=== PATIENT | male | born 1995 | race American Indian/Alaskan Native ===

== ENCOUNTER 2017-11-27 07:44 | Emergency (ER) | payer OTHER ==
[2017-11-27 07:50] VITALS: BP 112/74
--- NOTE | 2017-11-27 09:20 | Emergency Department Report ---
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 Once she started he noticed that he is having intense pain in the left ear is continued to have a ringing sensation. Patient denies any other complaints at this time. - Related Data Allergies Allergy/AdvReac Type Severity Reaction Status Date / Time No Known Allergies Allergy Unverified 11/27/17 07:46 ED Dental HPI - General Chief complaint: Earache Stated complaint: PAIN EAR DRUM Time Seen by Provider: 11/27/17 09:10 Source: patient Mode of arrival: Ambulatory Limitations: No Limitations - Related Data Allergies Allergy/AdvReac Type Severity Reaction Status Date / Time No Known Allergies Allergy Unverified 11/27/17 07:46 ED Review of Systems ROS: Stated complaint: PAIN EAR DRUM Other details as noted in HPI Comment: All other systems reviewed and negative ED Past Medical Hx - Past Medical History Previous Medical History?: No - Surgical History Additional Surgical History: LEFT HAND - Social History Smoking Status: Current Every Day Smoker Substance Use Type: None ED Physical Exam - General Limitations: No Limitations General appearance: alert, in no apparent distress - Head Head exam: Present: atraumatic, normocephalic - Eye Eye exam: Present: normal appearance - ENT ENT exam: Present: mucous membranes moist - Neck Neck exam: Present: normal inspection - Respiratory Respiratory exam: Present: normal lung sounds bilaterally. Absent: respiratory distress - Cardiovascular Cardiovascular Exam: Present: regular rate, normal rhythm. Absent: systolic murmur, diastolic murmur, rubs, gallop - GI/Abdominal GI/Abdominal exam: Present: soft, normal bowel sounds - Rectal Rectal exam: Present: deferred - Extremities Exam Extremities exam: Present: normal inspection - Back Exam Back exam: Present: normal inspection - Neurological Exam Neurological exam: Present: alert, oriented X3 - Psychiatric Psychiatric exam: Present: normal affect, normal mood - Skin Skin exam: Present: warm, dry, intact, normal color. Absent: rash ED Course Vital Signs 11/27/17 07:47 Temperature 97.7 F Pulse Rate 68 Respiratory 18 Rate Blood Pressure 112/74 O2 Sat by Pulse 99 Oximetry ED Medical Decision Making - Medical Decision Making Patient instructed that unfortunately there is nothing acutely that could be done for the ringing sensation. He would just have to wait for this to subside. Critical care attestation.: If time is entered above; I have spent that time in minutes in the direct care of this critically ill patient, excluding procedure time. ED Disposition Clinical Impression: Tinnitus Qualifiers: Laterality: left Qualified Code(s): H93.12 - Tinnitus, left ear Disposition: Z-07 MED SCREENING EXAM-LEFT Is pt being admited?: No Does the pt Need Aspirin: No Condition: Stable Referrals: PRIMARY CARE, [Primary Care Provider] - 3-5 Days
== END 2017-11-27 09:15 | disposition left against medical advice (07) ==
LOC: ED 07:44
DX: H93.12 Tinnitus, left ear (principal); F17.200 Nicotine dependence, unspecified, uncomplicated
CPT/HCPCS: 99282

== ENCOUNTER 2020-01-20 15:40 | Emergency (ER) | payer OTHER ==
[2020-01-20 16:01] VITALS: BP 122/85
--- NOTE | 2020-01-20 16:52 | XRay Report ---
RIGHT CLAVICLE 2 VIEWS INDICATION / CLINICAL INFORMATION: Right shoulder pain and limited range of motion. COMPARISON: None available. FINDINGS: BONES / JOINT(S): No acute fracture or subluxation. No significant arthritis. SOFT TISSUES: No significant abnormality. ADDITIONAL FINDINGS: The visualized portion of the right lung is clear. IMPRESSION: No acute abnormality. Signer Name: Alok Frausto MD Signed: 01/20/2020 4:47 PM Workstation Name: [id number]
--- NOTE | 2020-01-20 16:58 | XRay Report ---
RIGHT SHOULDER 3 VIEWS INDICATION: Right shoulder pain. COMPARISON: No relevant prior imaging study available. FINDINGS: No acute fracture or dislocation is seen. No significant degenerative changes. No foreign bodies. IMPRESSION: 1. No acute findings. Signer Name: Goldy Varner MD Signed: 01/20/2020 4:53 PM Workstation Name: [id number]
--- NOTE | 2020-01-20 18:30 | Emergency Department Report ---
ED Upper Extremity Inj HPI - General Chief Complaint: Extremity Injury, Upper Stated Complaint: RT SHOULDER PAIN Time Seen by Provider: 01/20/20 18:20 Source: patient Mode of arrival: Ambulatory Limitations: No Limitations - History of Present Illness Initial Comments: 24-year-old -[place] Citizen male presents to the emergency room complaining of right shoulder pain states that he had dropped a weight on his arm last week. Patient states prior to that he was having pain to his right arm. Patient reports he has not taken anything for pain. Patient denies any past medical history takes no medications on a daily basis and has no known drug allergies. MD Complaint: Injury to:: right, shoulder Onset/Timin -: week(s) Other Extremity Injury: Shoulder: Right Other Injuries: none Place: other (gym) Severity scale (0 -10): 7 Improves With: rest Worsens With: movement of extremity Context: direct blow Associated Symptoms: denies other symptoms - Related Data Previous Rx's Medication Instructions Recorded Last Taken Type Ibuprofen [Motrin 600 MG tab] 600 mg PO Q8H PRN #30 tablet 01/20/20 Unknown Rx Allergies Allergy/AdvReac Type Severity Reaction Status Date / Time No Known Allergies Allergy Verified 01/20/20 15:58 ED Review of Systems ROS: Stated complaint: RT SHOULDER PAIN Other details as noted in HPI Comment: All other systems reviewed and negative ED Past Medical Hx - Past Medical History Previous Medical History?: No - Surgical History Additional Surgical History: LEFT HAND - Social History Smoking Status: Current Every Day Smoker Substance Use Type: None - Medications Home Medications: Home Medications Medication Instructions Recorded Confirmed Last Taken Type Ibuprofen [Motrin 600 MG tab] 600 mg PO Q8H PRN #30 tablet 01/20/20 Unknown Rx ED Physical Exam - General Limitations: No Limitations General appearance: alert, in no apparent distress - Head Head exam: Present: atraumatic, normocephalic - Eye Eye exam: Present: normal appearance - ENT ENT exam: Present: mucous membranes moist - Expanded Upper Extremity Exam Right Shoulder Exam: Present: full ROM, tenderness over AC joint. Absent: swelling Upper Arm exam: Present: normal inspection, full ROM Elbow exam: Present: normal inspection, full ROM Forearm Wrist exam: Present: normal inspection, full ROM Hand Wrist exam: Present: normal inspection Vascular: Present: normal capillary refill - Back Exam Back exam: Present: normal inspection, full ROM - Neurological Exam Neurological exam: Present: alert, oriented X3 - Psychiatric Psychiatric exam: Present: normal affect, normal mood - Skin Skin exam: Present: warm, dry, intact, normal color. Absent: rash ED Course Vital Signs 01/20/20 16:00 Temperature 98.3 F Pulse Rate 60 Respiratory 16 Rate Blood Pressure 122/85 O2 Sat by Pulse 99 Oximetry ED Medical Decision Making - Radiology Data Radiology results: report reviewed Patient: JESSICA MCKEON MR#: [id number] 3 : 1995 Acct:[id number] Age/Sex: 24 / M ADM Date: 01/20/20 Loc: ED Attending Dr: Ordering Physician: EVELYN WISDOM Date of Service: 01/20/20 Procedure(s): XR shoulder 2+V RT Accession Number(s): [id number] cc: EVELYN WISDOM Fluoro Time In Minutes: RIGHT SHOULDER 3 VIEWS INDICATION: Right shoulder pain. COMPARISON: No relevant prior imaging study available. FINDINGS: No acute fracture or dislocation is seen. No significant degenerative changes. No foreign bodies. IMPRESSION: 1. No acute findings. Signer Name: Goldy Varner MD Signed: 01/20/2020 4:53 PM Workstation Name: [id number] Transcribed By: Dictated By: Goldy Varner MD Electronically Authenticated By: Goldy Varner MD Signed Date/Time: 01/20/20 8410 - Medical Decision Making 24-year-old -[place] Citizen male presents to the emergency room complaining of right shoulder pain states that he had dropped a weight on his arm last week. Patient states prior to that he was having pain to his right arm. Patient reports he has not taken anything for pain. Patient denies any past medical history takes no medications on a daily basis and has no known drug allergies. X-rays of right clavicle and right shoulder shows no acute bony abnormalities. Recommend follow-up with engineer specialist. Ibuprofen for pain management. Increase fluid intake. Critical care attestation.: If time is entered above; I have spent that time in minutes in the direct care of this critically ill patient, excluding procedure time. ED Disposition Clinical Impression: Right shoulder pain, Pain of right clavicle Disposition: TO HOME OR SELFCARE Is pt being admited?: No Does the pt Need Aspirin: No Condition: Stable Instructions: Rotator Cuff Injury (ED) Additional Instructions: Take ibuprofen breakfast lunch and dinner for the next few days. Increase your fluid intake. Follow-up with an orthopedic provider if continued to be in discomfort. Prescriptions: Ibuprofen [Motrin 600 MG tab] 600 mg PO Q8H PRN #30 tablet PRN Reason: Pain Referrals: PRIMARY CARE, [Primary Care Provider] - 3-5 Days JESSICA KATHLEEN MD [Staff Physician] - 3-5 Days VILMA SOUSA MD [Staff Physician] - 3-5 Days
== END 2020-01-20 19:01 | disposition home or self-care (01) ==
LOC: ED 15:40
DX: M25.511 Pain in right shoulder (principal); F17.200 Nicotine dependence, unspecified, uncomplicated